=== PATIENT | male | born 1960 | race Two or more races ===

== ENCOUNTER 2022-12-16 01:20 | Emergency (ER) | payer OTHER ==
[~2022-12-16] VITALS: Ht 175.3 cm; Wt 81.6 kg
[2022-12-16] MEDS ORDERED: COZAAR100 MG PO (01:28)
[2022-12-16] MEDS ORDERED: ANTIVERT25 M2 PO (04:43)
[2022-12-16] MEDS ORDERED: MEDROLPACK PO (04:43)
[2022-12-16] MEDS ORDERED: ACETAMINOPHEN500 M2 PO (04:43)
== END 2022-12-16 04:47 | disposition home or self-care (01) ==
LOC: ER 01:20
PROVIDERS: General Practice
DX: R51.9 Headache, unspecified (principal); R42 Dizziness and giddiness
CPT/HCPCS: 36415; 70450; 93005; 96365; 99284; J1100; J1200